=== PATIENT | male | born 1945 | race Caucasian/White ===

== ENCOUNTER → 2020-10-10 12:50 | Outpatient (CLI) | payer MEDICARE, SELFPAY ==
--- NOTE | ~2020-10-10 | CT_ITS ---
EXAMINATION: CT lung screening DATE: 10/10/2020 13:13 INDICATION: Personal history of tobacco dependence TECHNIQUE: Computed tomography (CT) of the chest was performed without intravenous contrast. The dose -length product was 109.81 mGy-cm. Automated exposure control and iterative reconstruction technique were employed. COMPARISON: CT dated 05/10/2019 FINDINGS: Cardiomegaly. There is atherosclerosis of the aorta and coronary arteries. Status post medi an sternotomy for CABG. No significant pleural or pericardial effusion. The upper abdomen is unremark able. There are scattered calcified granulomas in the lung parenchyma. There is emphysema. No endobro nchial lesions. No thoracic lymphadenopathy. There are a few 1-2 mm pulmonary nodules which are not c learly calcified. No suspicious masses are identified. No acute bone or joint abnormality. IMPRESSION: 1. Lung-RADS category 2: Benign appearance or behavior. Continue annual screening with noncontrast lo w-dose chest CT in 12 months. Reviewed, dictated and finalized at location B. IMPRESSION: 1. Lung-RADS category 2: Benign appearance or behavior. Continue annual screeni ng with noncontrast low-dose chest CT in 12 months.
== END ==
PROVIDERS: Visit Provider Internal Medicine
DX: F17.210 Nicotine dependence, cigarettes, uncomplicated (principal)
CPT/HCPCS: 71271

== ENCOUNTER → 2021-06-19 10:24 | Outpatient (REF) | payer MEDICARE, SELFPAY | LOC: ANHLAB 10:24 | PROVIDERS: PCP Internal Medicine; Visit Provider Nurse Practitioner | DX: C44.612 Basal cell carcinoma of skin of right upper limb, including shoulder (principal); C44.41 Basal cell carcinoma of skin of scalp and neck; L57.0 Actinic keratosis | CPT/HCPCS: 88305; 88342 ==

== ENCOUNTER 2021-07-21 02:22 | Emergency (ER) | payer MEDICARE, SELFPAY ==
[2021-07-21] VITALS (62 sets, daily range): BP systolic 79–167; BP diastolic 41–113; PULSE 72–117; RESP 11–23; TEMP 36.4–37; O2SAT 92–100
[2021-07-21 02:50] LABS: Mean Corpuscular HGB Conc 34.3 g/dl (32-36); Mean Corpuscular Hemoglobin 33.2 pg (26-34); Mean Corpuscular Volume 96.6 fl (80-100); Mean Platelet Volume 10.6 fl (7.4-10.4); Platelet Count Result 219 k/mm3 (150-375); Red Blood Count 2.08 M/mm3 (4.6-6.20); Red Cell Distribution Width 12.6 % (11.5-14.5); White Blood Count 18.5 K/mm3 (4.5-10.0)
[2021-07-21 03:03] LABS: Anion Gap 7 mmol/L (8-16); Blood Urea Nitrogen 43 mg/dL (9-20); Calcium 9.3 mg/dL (8.4-10.2); Carbon Dioxide 28 mmol/L (22-30); Chloride 99 mmol/L (98-107); Estimated CRCL calculation 63 ml/min; Estimated Glomerular Filt Rate > 60; Glucose 235 mg/dL (65-110); Potassium 4.1 mmol/L (3.4-5.0); Sodium 134 mmol/L (137-145)
[2021-07-21 03:04] LABS: INR 1.1; Partial Thromboplastin Time 25.2 SECONDS (22.3-36.8); Prothrombin Time 14.1 Seconds (11.1-14.7)
[2021-07-21 03:08] LABS: Hemoglobin 6.9 g/dL (14.0-18.0)
[2021-07-21 03:09] LABS: Hematocrit 20.1 % (42.0-52.0)
[2021-07-21 03:23] LABS: Band Neutrophils Percent 6 % (0-6); Eosinophils Absolute Manual 0.18 K/mm3 (0.02-0.5); Eosinophils Percent Manual 1 % (0-4); Lymphocytes Absolute Manual 4.81 K/mm3 (1.1-4.5); Metamyelocytes Percent 3 %; Monocytes Absolute Manual 1.11 K/mm3 (0.1-0.90); Monocytes Percent Manual 6 % (3-9); Neutrophils Absolute Manual 11.84 K/mm3 (1.3-6.7); Neutrophils Percent Manual 58 % (46-73); Total Cells Counted 100
[2021-07-21 03:24] LABS: Atypical Lymphocytes Present; Platelet Estimate Adequate (Adequate)
[2021-07-21] MEDS: PANTOPRAZOLE SODIUM IV 40 MG VIAL 80 MG IV PUSH (03:28)
--- NOTE | 2021-07-21 05:16 | ED.NAVMDI ---
HPI - Nausea/Vomiting/Diarrhea General Chief complaint: Nausea/Vomiting/Diarrhea Stated complaint: VOMITING BOOD, DARK STOOL Time Seen by Provider: 07/21/21 02:24 History of Present Illness HPI Narrative: Patient is a 76-year-old male who presents ER with concern of GI bleeding. Patient underwent dental extraction today. Reports no significant bleeding during the procedure does not recall choking or swallowing blood. His Xarelto was held 2 days ago. He has had scant oozing from the area since the procedure. This evening he woke up from bed to use restroom. Reports it was loose and black. He then returned to his bed and became incredibly lightheaded and then vomited coffee ground substance. Patient has had no syncope. Upon arrival here orthostatics were positive with a blood pressure going from 129/53 mmHg to 79/43 mmHg when going from laying to sitting. Patient has a GI physician at [facility]. Related Data Home Medications Medication Instructions Recorded Confirmed alprazolam 0.5 mg tablet 0.5 mg PO TID tablet 06/19/21 amoxicillin 500 mg tablet 2,000 mg PO ONCE tablet 06/19/21 carvedilol 6.25 mg tablet 6.25 mg PO BID tablet 06/19/21 cephalexin 500 mg capsule 2,000 mg PO Q8H cap 06/19/21 furosemide 40 mg tablet 40 mg PO BID tablet 06/19/21 lisinopril 5 mg tablet 5 mg PO DAILY tablet 06/19/21 pravastatin 40 mg tablet 40 mg PO DAILY tablet 06/19/21 rivaroxaban 20 mg tablet 20 mg PO DAILY tablet 06/19/21 sertraline 50 mg tablet 50 mg PO DAILY tablet 06/19/21 umeclidinium 62.5 mcg-vilanterol 1 inh INHALATION DAILY 06/19/21 25 mcg/actuation powdr for inhalation Allergies Allergy/AdvReac Type Severity Reaction Status Date / Time adhesive Allergy Unknown Rash Verified 07/21/21 03:04 codeine AdvReac Nausea Verified 07/21/21 03:04 SPORINS Allergy Unknown Unknown Uncoded 07/21/21 03:04 Review of Systems Review of Systems: All systems reviewed & are unremarkable except as noted in HPI and below Constitutional: Constitutional: Denies chills, Denies fever(s) and Reports weakness ENT: Denies nasal congestion and Denies sore throat Respiratory: Respiratory: Denies cough and Denies dyspnea Gastrointestinal: Gastrointestinal: Denies abdominal pain, Reports nausea and Reports vomiting Comments: Dark black stools, coffee-ground emesis Genitourinary: Genitourinary: Denies hematuria, Denies dysuria and Denies urinary frequency Neurologic: Denies syncope, Denies focal weakness and Denies numbness PMFSH Past Medical History Medical History (Updated 07/21/21 @ 06:42 by Simone Waller MD) Atrial fibrillation CHF (congestive heart failure) 11/2012 and 10/2015 History of cataract Pacemaker Surgical History Surgical History History of aortic valve replacement 12/2012 History of mitral valve repair 12/2012 Social History Social History Smoking status: Never smoker Alcohol intake: current Substance use: never Substance use type: does not use Exam Narrative: GENERAL: Ill-appearing, well-nourished, and in mild distress. HEAD: Normocephalic, atraumatic. EYES: PERRL and EOMI. Pale conjunctiva. ENT: Mucous membranes moist. CHEST: Clear to auscultation. No respiratory distress. HEART: Irregularly irregular rate and rhythm. Normal peripheral pulses. ABDOMEN: Soft, nontender, nondistended. Dark black pasty stool without gross blood on rectal exam. Hemoccult positive. EXTREMITIES: Normal range of motion. No edema. SKIN: Certified Coatings Inspector/Pale/Dry, no rash. NEURO: Alert and oriented x3. PSYCH: Normal mood and affect. Course Course Emergency Course: Patient accepted for transfer by Dr. You at [facility]. Patient has received 2 units of packed red blood cells for his anemia. Blood pressure currently 153/65 mmHg with a heart rate of 78 bpm. No additional bloody baudilio
[2021-07-21] MEDS: SODIUM CHLORIDE 0.9% IV 250 ML 30 ML IV CONT (05:26)
--- NOTE | 2021-07-21 18:42 | PC.NURSE ---
[facility] contacted. Awaiting room assignment. family updated.
--- NOTE | 2021-07-21 18:42 | PC.NURSE ---
called [facility] transfer line no bed yet [id number]. requested covid swab if not done.
[2021-07-21 19:34] LABS: SARS-CoV-2 RNA PCR Negative
[2021-07-22] VITALS (17 sets, daily range): BP systolic 116–168; BP diastolic 61–103; PULSE 70–112; RESP 12–22; TEMP 36.6–36.8; O2SAT 95–100
[2021-07-22 01:45] LABS: Basophils Absolute Auto 0.1 K/mm3 (0.0-0.1); Basophils Percent Auto 0.8 % (0.2-1.2); Eosinophils Absolute Auto 0.3 K/mm3 (0-0.3); Eosinophils Percent Auto 1.6 % (0-4.4); Hematocrit 23.7 % (42.0-52.0); Immature Granulocyte Absolute 0.64 K/mm3 (0.00-0.031); Lymphocytes Absolute Auto 3.52 K/mm3 (0.9-3.2); Lymphocytes Percent Auto 22.1 % (18.3-44.2); Mean Corpuscular HGB Conc 33.8 g/dl (32-36); Mean Corpuscular Volume 91.9 fl (80-100); Monocytes Absolute Auto 1.2 K/mm3 (0.1-0.6); Monocytes Percent Auto 7.2 % (2.6-8.5); Neutrophils Absolute Auto 10.3 K/mm3 (1.3-6.7); Neutrophils Percent Auto 64.3 % (45.5-73.1); Nucleated Red Blood Cells Absolute Auto 0.1 K/mm3 (0.0-0.012); Nucleated Red Blood Cells Perc 0.4 % (0.0-0.2); Platelet Count Result 170 k/mm3 (150-375); Red Blood Count 2.58 M/mm3 (4.6-6.20); Red Cell Distribution Width 15.3 % (11.5-14.5)
[2021-07-22 02:01] LABS: Anion Gap 5 mmol/L (8-16); Blood Urea Nitrogen 20 mg/dL (9-20); Calcium 8.3 mg/dL (8.4-10.2); Carbon Dioxide 28 mmol/L (22-30); Chloride 100 mmol/L (98-107); Estimated CRCL calculation 71 ml/min; Estimated Glomerular Filt Rate > 60; Glucose 138 mg/dL (65-110); Potassium 3.6 mmol/L (3.4-5.0); Sodium 133 mmol/L (137-145)
--- NOTE | 2021-07-22 02:30 | PC.NURSE ---
Updated Mario from [facility] transfer center. She reports there are still no beds available. Will follow up.
--- NOTE | 2021-07-22 02:31 | PC.NURSE ---
Mario with [facility] Transfer Center called for patient status. No beds available as of yet at [facility].
--- NOTE | 2021-07-22 08:54 | PC.NURSE ---
called [facility], 0844 still waiting for bed.
--- NOTE | 2021-07-22 09:37 | PC.NURSE ---
[facility] transport center called for pt update. They will call when bed available.
--- NOTE | 2021-07-22 12:09 | PC.NURSE ---
pt in room, awaiting bed at [facility]. no needs at this time
--- NOTE | 2021-07-22 15:45 | PC.NURSE ---
still no word from [facility], pt in room stable at this time, Protonix infusing no needs at this time
--- NOTE | 2021-07-22 17:39 | PC.NURSE ---
pt received [facility] [phone] # for report [phone]
--- NOTE | 2021-07-22 20:07 | PC.NURSE ---
[facility] have not arrived per schedule, call placed to [facility] awaiting new dept time
== END 2021-07-22 19:30 | disposition short-term general hospital (02) ==
PROVIDERS: Emergency Provider Emergency Medicine; PCP Internal Medicine
DX: K92.2 Gastrointestinal hemorrhage, unspecified (principal); Z20.822 Contact with and (suspected) exposure to COVID-19; I48.91 Unspecified atrial fibrillation; H26.9 Unspecified cataract; Z95.0 Presence of cardiac pacemaker; Z95.2 Presence of prosthetic heart valve; Z79.01 Long term (current) use of anticoagulants
CPT/HCPCS: 36415; 36430; 80048; 85025; 85610; 85730; 86850; 86900; 86901; 86920; 96365; 96366; 96375; 99285; C9113; C9803; J7050; J7060; P9016; U0003; U0005

== ENCOUNTER → 2021-08-20 07:31 | Outpatient (REF) | payer MEDICARE, SELFPAY | LOC: ANHLAB 07:31 | PROVIDERS: PCP Internal Medicine; Visit Provider Nurse Practitioner | DX: C44.41 Basal cell carcinoma of skin of scalp and neck (principal); C44.612 Basal cell carcinoma of skin of right upper limb, including shoulder | CPT/HCPCS: 88305; 88331 ==

== ENCOUNTER → 2021-10-30 13:47 | Outpatient (CLI) | payer MEDICARE, SELFPAY ==
--- NOTE | ~2021-10-30 | CT_ITS ---
EXAMINATION: CT lung screening DATE: 10/30/2021 14:08 INDICATION: Personal history of tobacco dependence TECHNIQUE: Computed tomography (CT) of the chest was performed without intravenous contrast. The dose -length product was 116.07 mGy-cm. Automated exposure control and iterative reconstruction technique were employed. COMPARISON: CT dated 10/10/2020 FINDINGS: Moderate emphysema. No endobronchial lesions. There is atherosclerosis of the aorta, great vessels and coronary arteries. Heart size normal. No significant pleural or pericardial effusion. Upp er abdomen is unremarkable. There are a few scattered calcified granulomas. There are a few small 1-2 mm nodules in both lungs which are not clearly calcified, likely benign. No new suspicious masses or pulmonary nodules. No endobronchial lesions. IMPRESSION: 1. Lung-RADS category 2: Benign appearance or behavior. Continue annual screening with noncontrast lo w-dose chest CT in 12 months. Reviewed, dictated and finalized at location A. IMPRESSION: 1. Lung-RADS category 2: Benign appearance or behavior. Continue annual screeni ng with noncontrast low-dose chest CT in 12 months.
== END ==
PROVIDERS: PCP Internal Medicine; Visit Provider Internal Medicine
DX: Z12.2 Encounter for screening for malignant neoplasm of respiratory organs (principal); F17.210 Nicotine dependence, cigarettes, uncomplicated
CPT/HCPCS: 71271

== ENCOUNTER 2022-01-29 13:00 | Outpatient (NON) | payer MEDICARE, SELFPAY | END 2022-01-29 13:01 | disposition home or self-care (01) | LOC: ANHLAB 01-30 11:25 | PROVIDERS: PCP Internal Medicine; Visit Provider Nurse Practitioner | DX: D22.9 Melanocytic nevi, unspecified (principal); C44.1192 Basal cell carcinoma of skin of left lower eyelid, including canthus | CPT/HCPCS: 88305 ==

== ENCOUNTER 2022-04-01 08:00 | Outpatient (NON) | payer MEDICARE, SELFPAY | END 2022-04-01 08:01 | disposition home or self-care (01) | LOC: ANHLAB 04-02 14:35 | PROVIDERS: PCP Internal Medicine; Visit Provider Nurse Practitioner | DX: C44.1192 Basal cell carcinoma of skin of left lower eyelid, including canthus (principal) | CPT/HCPCS: 88305; 88331 ==

== ENCOUNTER 2022-05-20 11:50 | Outpatient (NON) | payer MEDICARE, SELFPAY | END 2022-05-20 11:51 | disposition home or self-care (01) | LOC: ANHLAB 11:50 | PROVIDERS: PCP Internal Medicine; Visit Provider Nurse Practitioner | DX: C44.42 Squamous cell carcinoma of skin of scalp and neck (principal) | CPT/HCPCS: 88305; 88331 ==

== ENCOUNTER → 2022-10-31 12:52 | Outpatient (CLI) | payer MEDICARE, SELFPAY ==
--- NOTE | ~2022-10-31 | CT_ITS ---
EXAMINATION: CT lung screening DATE: 10/31/2022 13:18 INDICATION: Personal history of nicotine dependence, prior smoker with 100 pack year history TECHNIQUE: Computed tomography (CT) of the chest was performed without intravenous contrast. The dose -length product (DLP) was 81.79 mGy-cm. Automated exposure control and iterative reconstruction techn [employer] were employed. COMPARISON: 10/30/2021 FINDINGS: There is moderate emphysema. Scattered, stable 1 to 2 mm nodules are seen. No pleural effus ion or pneumothorax. There is a dual-lead pacemaker of the left chest wall. Stable cardiomegaly is no florencio. There are no pathologically enlarged thoracic lymph nodes. There are changes of aortic and gregory l valve replacement. There is a 6 mm cyst of the left hepatic lobe. There is mild thoracic spondylosi s. IMPRESSION: 1. Lung-RADS category 2: Benign appearance or behavior. Continue annual screening with noncontrast lo w-dose chest CT in 12 months. Reviewed, dictated and finalized at location L. IMPRESSION: 1. Lung-RADS category 2: Benign appearance or behavior. Continue annual screeni ng with noncontrast low-dose chest CT in 12 months.
== END ==
PROVIDERS: PCP Family Medicine
DX: Z12.2 Encounter for screening for malignant neoplasm of respiratory organs (principal); Z87.891 Personal history of nicotine dependence
CPT/HCPCS: 71271

== ENCOUNTER 2023-03-11 13:09 | Outpatient (NON) | payer MEDICARE, SELFPAY | END 2023-03-11 13:10 | disposition home or self-care (01) | LOC: ANHLAB 03-12 13:12 | PROVIDERS: PCP Family Medicine; Visit Provider Nurse Practitioner | DX: L72.0 Epidermal cyst (principal) | CPT/HCPCS: 88304 ==

== ENCOUNTER 2023-11-06 12:57 | Outpatient (CLI) | payer MEDICARE, SELFPAY ==
--- NOTE | ~2023-11-06 | CT_ITS ---
CT Scan of the Chest without Contrast: Clinical Indication: Pulmonary emphysema Technique: Contiguous sections were acquired throughout the chest without intravenous contrast. Dose reduction technique was used on this scan by utilizing automated exposure control and iterative recon struction technique. The dose-length product (DLP) was 350.80 mGy-cm. COMPARISON: 10/31/2022 Findings: There is no evidence of any significant mediastinal, hilar or axillary lymphadenopathy. There are ext ensive atherosclerotic calcific lesions of the aorta and coronary arteries. There is no evidence of pleural or pericardial effusion. The lungs are clear. No pulmonary nodules or infiltrates are noted. Moderate emphysema. Images through the upper abdomen reveal small calcified gallstone. Impression: Moderate emphysema. Reviewed, dictated and finalized at location . Impression: Moderate emphysema.
== END 2023-11-06 12:58 ==
LOC: MICIMG 12:58
PROVIDERS: PCP Hospitalist; Visit Provider Hospitalist
DX: J43.9 Emphysema, unspecified (principal); R91.8 Other nonspecific abnormal finding of lung field
CPT/HCPCS: 71250